=== PATIENT | female | born 2000 | race African-American/Black ===

== ENCOUNTER 2020-03-29 22:03 | Emergency (ER) | payer MEDICAID, OTHER ==
[~2020-03-29] VITALS: Ht 162.6 cm; Wt 46.3 kg
[2020-03-30 00:22] LABS: Urine Bacteria FEW /hpf (None Seen); Urine Blood TRACE /uL (Negative); Urine Mucus FEW (None Seen); Urine Specific Gravity 1.018 (1.001-1.035); Urine WBC 1 /hpf (0 - 5)
[2020-03-30 01:06] VITALS: BP 111/71
[2020-03-30] MEDS ORDERED: KETOROLAC TROMETH 60MG/2ML VIAL IM ONE (01:15)
== END 2020-03-30 02:38 | disposition home or self-care (01) ==
LOC: ER 22:12
DX: N94.6 Dysmenorrhea, unspecified (principal); R10.30 Lower abdominal pain, unspecified
CPT/HCPCS: 81001; 96372; 99283; J1885